=== PATIENT | male | born 1975 | race Caucasian/White ===

== ENCOUNTER 2017-11-11 20:04 | Emergency (ER) | payer SELFPAY ==
[~2017-11-11] VITALS: Ht 188 cm; Wt 97.7 kg
[2017-11-11 20:07] VITALS: TEMP 99.3
[2017-11-11 21:35] LABS: BASO % 0.3 % (0.0-2.0); EOS # 0.3 (0.0-0.7); EOS % 2.3 % (0-4.0); GRAN # 9.3 (1.4-6.5); GRAN % 65.3 % (42.2-75.2); HEMATOCRIT 45.2 % (42.0-52.0); HEMOGLOBIN 15.9 g/dl (13.5-18.0); LYMPH # 3.6 (1.2-3.4); LYMPH % 25.6 % (20.0-51.0); MEAN CELL VOLUME 93 fl (80.0-100.0); MEAN CORPUSCULAR HEMOGLOBIN 33 pg (27.0-31.0); MEAN CORPUSCULAR HGB CONC 35 g/dl (33.0-37.0); MEAN PLATELET VOLUME 9.9 fl (7.4-10.4); MONO # 0.9 (0.1-0.6); MONO % 6.1 % (1.7-9.3); PLATELET COUNT 281 K/mm3 (130-400); RED BLOOD COUNT 4.85 M/mm3 (4.20-5.60); REDCELL DISTRIBUTION WIDTH-CV 12.4 % (11.5-14.5)
[2017-11-11 21:45] LABS: ALANINE AMINOTRANSFERASE 40 U/L (21-72); ALKALINE PHOSPHATASE 87 U/L (50-136); ANION GAP 11 mmol/L (7-16); AST,SGOT 27 U/L (15-37); BILIRUBIN,TOTAL 0.2 mg/dL (0.0-1.0); BLOOD UREA NITROGEN 14 mg/dL (9-20); CARBON DIOXIDE 25 mmol/L (22-30); CHLORIDE 104 mmol/L (98-107); CREATININE, serum 0.99 mg/dL (0.66-1.25); GLUCOSE 92 mg/dL (74-106); LIPASE 127 U/L (23-300); POTASSIUM 3.7 mmol/L (3.4-5.0); SODIUM 140 mmol/L (137-145)
[2017-11-11 22:13] LABS: TROPONIN-I < 0.012 ng/mL (0.000-0.034)
[2017-11-11] MEDS ORDERED: TUSS PO (22:51)
[2017-11-11] MEDS ORDERED: ZOFRAN 4MG T4 MG/TAB PO (22:51)
[2017-11-11] MEDS ORDERED: ZITHROMAX Z PA250 MG PO (22:51)
[2017-11-11 23:25] VITALS: BP 115/86; PULSE 60
== END 2017-11-11 23:28 | disposition home or self-care (01) ==
LOC: COL.ER 20:04
PROVIDERS: Emergency Medicine
DX: K52.9 Noninfective gastroenteritis and colitis, unspecified (principal); R05 Cough
CPT/HCPCS: J0780; J1885; J7030

== ENCOUNTER 2018-02-24 22:18 | Emergency (ER) | payer SELFPAY ==
[~2018-02-24] VITALS: Ht 188 cm; Wt 105.0 kg
[~2018-02-24 22:18] MED LIST: TUSS PO; ZITHROMAX Z PA250 MG PO; ZOFRAN 4MG T4 MG/TAB PO
[2018-02-24 22:21] VITALS: TEMP 99.6
[2018-02-24] MEDS ORDERED: PROAIR HFA0.09 MG/AC IH (23:59)
[2018-02-24] MEDS ORDERED: ZITHROMAX 250M250 MG PO (23:59)
[2018-02-24] MEDS ORDERED: PREDNISONE20 MG PO (23:59)
[2018-02-25 00:50] VITALS: BP 102/61; PULSE 101
== END 2018-02-25 00:54 | disposition home or self-care (01) ==
LOC: COL.ER 22:18
DX: J45.909 Unspecified asthma, uncomplicated (principal); J20.9 Acute bronchitis, unspecified; F17.210 Nicotine dependence, cigarettes, uncomplicated
CPT/HCPCS: J7512

== ENCOUNTER 2018-09-07 01:56 | Emergency (ER) | payer BC ==
[~2018-09-07] VITALS: Ht 188 cm; Wt 109.1 kg
[~2018-09-07 01:56] MED LIST changes: +PREDNISONE20 MG PO; +PROAIR HFA0.09 MG/AC IH; +ZITHROMAX 250M250 MG PO
[2018-09-07 02:04] VITALS: BP 145/88; TEMP 100.3
[2018-09-07 03:10] VITALS: PULSE 98
== END 2018-09-07 03:12 | disposition home or self-care (01) ==
LOC: COL.ER 01:56
DX: S93.402A Sprain of unspecified ligament of left ankle, initial encounter (principal); F17.210 Nicotine dependence, cigarettes, uncomplicated; X50.1XXA Overexertion from prolonged static or awkward postures, initial encounter; Y92.009 Unspecified place in unspecified non-institutional (private) residence as the place of occurrence of the external cause